=== PATIENT | male | born 1990 | race Two or more races ===

== ENCOUNTER 2024-05-04 05:03 | Emergency (ER) | payer OTHER ==
[~2024-05-04] VITALS: Ht 167.6 cm; Wt 84.5 kg
[2024-05-04 06:55] VITALS: BP 145/99; PULSE 105; RESP 18; TEMP 98.4; O2SAT 99
== END 2024-05-04 06:56 | disposition home or self-care (01) ==
LOC: ER 05:03 → EDBD 05:03 → ER 06:56
DX: S02.5XXA Fracture of tooth (traumatic), initial encounter for closed fracture (principal); S01.511A Laceration without foreign body of lip, initial encounter; F17.210 Nicotine dependence, cigarettes, uncomplicated; R42 Dizziness and giddiness; M54.2 Cervicalgia; Z79.01 Long term (current) use of anticoagulants; Z79.899 Other long term (current) drug therapy; Y04.2XXA Assault by strike against or bumped into by another person, initial encounter; Y93.89 Activity, other specified; Y92.89 Other specified places as the place of occurrence of the external cause; Y99.8 Other external cause status
CPT/HCPCS: 70450; 70486